=== PATIENT | male | born 1975 | race Caucasian/White ===

== ENCOUNTER 2021-01-03 11:30 | Outpatient (CLI) | payer BC, SELFPAY ==
--- NOTE | ~2021-01-03 | XR_ITS ---
EXAMINATION: XR knee LT min 4V DATE: 01/03/2021 11:54 INDICATION: Left knee joint effusion. Left knee pain. TECHNIQUE: 4 views of left knee were obtained. COMPARISON: None. FINDINGS: Bone alignment is normal. No fracture. There is mild tricompartmental osteoarthritis. There is a moderate-sized knee joint effusion. IMPRESSION: 1. Mild left knee osteoarthritis. 2. Moderate-sized left knee joint effusion. Reviewed, dictated and finalized at location A.
== END 2021-01-03 11:31 | disposition home or self-care (01) ==
LOC: ANHIMG 11:35
PROVIDERS: PCP Family Medicine; Visit Provider Family Medicine
DX: M17.12 Unilateral primary osteoarthritis, left knee (principal); M25.461 Effusion, right knee
CPT/HCPCS: 73564

== ENCOUNTER 2025-06-08 15:30 | Outpatient (CLI) | payer BC, SELFPAY ==
--- NOTE | ~2025-06-08 | US_ITS ---
LEFT LOWER EXTREMITY VENOUS DUPLEX Clinical History: M79.662 - Pain in left lower leg COMPARISON: None TECHNIQUE: Grayscale, color, duplex/spectral Doppler sonography left leg FINDINGS: Left leg common femoral, femoral, popliteal, and calf veins compressible and color Doppler patent. Normal augmentation with distal compression. No internal echoes. 2 complex Macdonald's cyst cysts. 5.2 cm and 5.1 cm IMPRESSION: 1. No left leg DVT. 2. 2 Macdonald's cysts as above. Reviewed, dictated and finalized at location R. IDENTIFICATION SPECIALIST
--- NOTE | ~2025-06-08 | XR_ITS ---
EXAMINATION: XR ankle LT 2V, 06/08/2025 16:22 FITNESS ATTENDANT HISTORY: pain and swelling left ankle and lower leg; no injury COMPARISON: No comparisons available. Findings: No acute fracture or malalignment. No significant degenerative changes. Soft tissues unremarkable. Impression: No acute fracture or malalignment. Reviewed, dictated and finalized at location P. ESS ATTENDANT Impression: No acute fracture or malalignment.
--- NOTE | ~2025-06-08 | XR_ITS ---
EXAMINATION: XR foot LT min 3V, 06/08/2025 16:22 AGRICULTURAL REAL ESTATE AGENT HISTORY: pain and swelling left ankle; no injury COMPARISON: No comparisons available. Findings: No acute fracture or malalignment. No significant degenerative changes. Soft tissues unremarkable. Impression: No acute fracture or malalignment. Reviewed, dictated and finalized at location P. CULTURAL REAL ESTATE AGENT Impression: No acute fracture or malalignment.
--- OUTSIDE RECORDS SUMMARY | 2025-06-08 12:01 | XMS_ITS | Clinical Summary ---
Author Organization [facility] Address [address] [place] [place] [address] Phone Care Team Providers Care Hydramatic Specialist Name Role Phone Unavailable Primary Care Provider Unavailabl e Allergies No known active allergies Medications losartan (COZAAR) 50 mg tablet Take 1 Tablet (50 mg) by mouth daily. 90 Tablet 3 08/24/2021 Active Active Problems Patient Care Coordination No te Formatting of this note migh t be different from the original. Dr Luigi Ugarte, cardiology----[place] Problem Noted Date Diagnosed Date HTN (hypertension) 01/07/2019 Hyperlipidemia, mild 12/12/2017 Obesity (BMI 30.0-34.9) 12/12/2017 Family history of premature CAD 12/09/2017 Family History Medical History Relation Name Comments Heart Attack Father No Known Problems Mother Relation Name Status Comments Father Mother Alive Social History Tobacco Use Types Packs/Day Years Used Date Smoking Tobacco: Never Smokeless Tobacco: Never Alcohol Use Standard Drinks/Week Comments Yes 0 (1 standard drink = 0.6 oz pur e alcohol) Sex and Gender Information Value Date Recorded Sex Assigned at Not on file Legal Sex Male 2:36 PM CDT Gender Identity Not on file Sexual Orientation Not on file Last Filed Vital Signs Vital Sign Reading Time Taken Comments Blood Pressure 126/82 08/24/2021 11:34 AM DRILLER AND BROACHER Pulse 68 08/24/2021 11:34 AM DRILLER AND BROACHER Temperature - - Respiratory Rate - - Oxygen Saturation 98% 08/24/2021 11:34 AM DRILLER AND BROACHER Inhaled Oxygen Concentration - - Weight 127.7 kg (281 lb 8 oz) 08/24/2021 11:34 A M DRILLER AND BROACHER Height 193 cm (6' 4) 08/24/2021 11:34 AM DRILLER AND BROACHER Body Mass Index 34.27 08/24/2021 11:34 AM DRILLER AND BROACHER Plan of Treatment Health Maintenance Due Date Last Done Comments DTAP/TDAP/TD VACCINES (1 - Tdap) 1994 HEPATITIS B VACCINES (1 of 3 - 19+ 3-dose series) 03/09 COLORECTAL SCREENING 2020 Colorectal Cancer Screening 2020 FIT-DNA Q 3 years 2020 FIT/FOBT Q 1 year 2020 Flex Sig/CT Colonography Q 5 years 2020 INFLUENZA VACCINE (#1) 2025 ZOSTER VACCINE (1 of 2) 2025 Insurance BCBS OUT OF STATE
--- OUTSIDE RECORDS SUMMARY | 2025-06-08 12:01 | XMS_ITS | Clinical Summary ---
Author Organization [facility] [place] [address] Address [address] [place] [id number] Care Team Providers Care Stretching Machine Tender Frame Name Role Phone Unknown, Notinfile Primary Care Provider Unavail able Allergies No known active allergies Medications benzonatate (TESSALON) 200 mg capsuleIndicatio ns:Acute non-recurrent pansinusitis Take 1 capsule (200 mg total) by mouth 3 (three) times a day as needed for cough 30 capsule 3 Active Additional Information Patient not taking.Reported on 02/05/2023 losartan (COZAAR) 50 mg tablet Take 1 tablet (50 mg total) by mouth daily 2 Active Active Problems Problem Noted Date Diagnosed Date HTN (hypertension) 01/07/2019 Hyperlipidemia, mild 12/12/2017 Obesity (BMI 30.0-34.9) 12/12/2017 Social History Tobacco Use Types Packs/Day Years Used Date Smoking Tobacco: Never Assessed Sex and Gender Information Value Date Recorded Sex Assigned at Not on file Legal Sex Male 11:33 AM CDT Gender Identity Not on file Sexual Orientation Not on file Last Filed Vital Signs Vital Sign Reading Time Taken Comments Blood Pressure 120/82 02/05/2023 7:27 PM CDT Pulse 88 02/05/2023 7:27 PM CDT Temperature 36.8 C (98.2 F) 02/05/2023 7:27 PM CDT Respiratory Rate 20 02/05/2023 7:27 PM CDT Oxygen Saturation 93% 02/05/2023 7:27 PM CDT Inhaled Oxygen Concentration - - Weight 120.2 kg (265 lb) 02/05/2023 7:27 PM CDT Height 190.5 cm (6' 3) 02/05/2023 7:27 PM CDT Body Mass Index 33.12 02/05/2023 7:27 PM CDT Plan of Treatment Health Maintenance Due Date Last Done Comments Colon Cancer Screening-Colonoscopy 1975 Depression Screening 1975 Hepatitis C Screening 1975 Prostate Cancer Screening-PSA 1975 DTaP/Tdap/Td Vaccine (1 - Tdap) 1986 Hepatitis B Screening 1993 Regular Well Visit/Exam 18-64 1993 Influenza Vaccine (#1) 2025 Zoster Vaccine (1 of 2) 2025 Pneumococcal vaccine <65 Aged Out No longer eligible based on patient's age to complete this topic Insurance [employer] [facility] [address] [place] [id number] Care Teams Stretching Machine Tender Frame Relationship Specialty Start Date End Date Unknown, Notinfile PCP - General 01/09/23
--- OUTSIDE RECORDS SUMMARY | 2025-06-08 16:41 | XMS_ITS | Clinical Summary ---
Author Organization [facility] [address] Address [address] [place] [id number] Care Team Providers Care Fractionating Still Operator Name Role Phone Unknown, Notinfile Primary Care [...] patient's age to complete this topic Insurance [place] [facility] Care Teams Fractionating Still Operator Relationship Specialty Start Date End Date Unknown, Notinfile PCP - General 01/09/23
--- OUTSIDE RECORDS SUMMARY | 2025-06-08 16:41 | XMS_ITS | Clinical Summary ---
Author Organization [facility] Address [address] [place] [address] Phone Care Team Providers Care Structural Steel Engineer Name Role Phone Unavailable Primary Care Provider [...] Comments Blood Pressure 126/82 08/24/2021 11:34 AM CLIENT CARE COORDINATOR Pulse 68 08/24/2021 11:34 AM CLIENT CARE COORDINATOR Temperature - - Respiratory Rate - - Oxygen Saturation 98% 08/24/2021 11:34 AM CLIENT CARE COORDINATOR Inhaled Oxygen Concentration - - Weight 127.7 kg (281 lb 8 oz) 08/24/2021 11:34 A M CLIENT CARE COORDINATOR Height 193 cm (6' 4) 08/24/2021 11:34 AM CLIENT CARE COORDINATOR Body Mass Index 34.27 08/24/2021 11:34 AM CLIENT CARE COORDINATOR Plan of Treatment Health Maintenance Due Date [...]
[2025-06-08 17:07] LABS: Hematocrit 42.0 % (42.0-52.0); Hemoglobin 14.8 g/dL (14.0-18.0); Immature Granulocyte Percent A 0.3 % (0-0.5); Lymphocytes Absolute Auto 2.78 K/mm3 (0.9-3.2); Mean Corpuscular HGB Conc 35.2 g/dl (32-36); Mean Corpuscular Hemoglobin 31.2 pg (26-34); Mean Corpuscular Volume 88.6 fl (80-100); Nucleated Red Blood Cells Absolute Auto 0.000 K/mm3 (0.0-0.012); Nucleated Red Blood Cells Perc 0.0 % (0.0-0.2); Platelet Count Result 504 k/mm3 (150-375); Red Blood Count 4.74 M/mm3 (4.6-6.20); White Blood Count 10.0 K/mm3 (4.5-10.0)
[2025-06-08 17:19] LABS: Alanine Aminotransferase 32 U/L (6-50); Albumin Level 4.6 g/dL (3.5-5.1); Alkaline Phosphatase 67 U/L (38-126); Anion Gap 8 mmol/L (4-12); Aspartate Amino Transferase 38 U/L (17-59); Bilirubin,Total 0.5 mg/dL (0.2-1.3); Blood Urea Nitrogen 15 mg/dL (9-20); Calcium 9.4 mg/dL (8.4-10.2); Carbon Dioxide 26 mmol/L (22-30); Chloride 104 mmol/L (98-107); Cholesterol 203 mg/dL (0-200); Estimated Glomerular Filt Rate > 60; Glucose 115 mg/dL (65-110); HDL Direct 36 mg/dL; Potassium 4.2 mmol/L (3.4-5.0); Sodium 138 mmol/L (137-145); Total Protein 8.5 g/dL (6.3-8.2); Triglycerides 489 mg/dL (<150); Uric Acid 7.7 mg/dL (3.5-8.5)
[2025-06-08 17:37] LABS: Hemoglobin A1C 5.6 % (<5.7)
[2025-06-08 17:54] LABS: Prostate Specific Antigen 3.0 ng/mL (< OR = 4.0)
[2025-06-08 18:17] LABS: Thyroid Stimulating Hormone Reflex 2.840 uIU/mL (0.465-4.68)
== END 2025-06-08 15:31 | disposition home or self-care (01) ==
PROVIDERS: PCP Family Medicine
DX: M79.662 Pain in left lower leg (principal); M79.89 Other specified soft tissue disorders; Z12.5 Encounter for screening for malignant neoplasm of prostate; I10 Essential (primary) hypertension; E78.2 Mixed hyperlipidemia; R73.09 Other abnormal glucose; M10.472 Other secondary gout, left ankle and foot; M79.672 Pain in left foot; M25.572 Pain in left ankle and joints of left foot
CPT/HCPCS: 36415; 73600; 73630; 80053; 80061; 83036; 84153; 84443; 84550; 85025; 93971; G0103